=== PATIENT | female | born 1995 | race Caucasian/White ===

== ENCOUNTER → 2018-02-02 | Outpatient (CLI) | payer BC ==
[2016-06-02 19:22] VITALS: BP 114/61
--- NOTE | 2018-02-03 08:02 | CARD ---
MR#: [id number] Date of Study: 02/02/2018 Ordering Physician: KALEIGH DANIELSON, Referring Physician: KALEIGH DANIELSON, Tech: APPROVED REPORT Procedure: Implantation of a loop recorder. Indication: Near syncope, SVT, SSS, Tachybrady. Details: After appropriate informed consent, the chest was prepped and draped in usual sterile fashion. Next, 20 mL of lidocaine with epinephrine was used to and anesthetize the skin near the fourth intercostal space on the left side. Next, using a 15 blade scalpel a 0.25 inch incision was made. Subsequently, u sing a subcutaneous tunneling tool a small subcutaneous tunnel was made for the implantation of loop recorder. Subsequently, the loop recorder was injected into the subcutaneous tunnel without any probl ems. 3 stitches in an interrupted fashion were placed and the incision was covered in sterile dressin g. There were no acute complications. The patient tolerated the procedure well. <Conclusion> Successful implantation of a loop recorder for sick sinus syndrome, tachybradycardia syndrome and luke r syncope. Signed by : Kaleigh Danielson, Electronically Approved : 02/03/2018 08:02:22
== END | disposition home or self-care (01) ==
LOC: LINQ 02-01 12:59
PROVIDERS: ATTEND Internal Medicine Cardiovascular Disease
DX: I49.5 Sick sinus syndrome (principal); R55 Syncope and collapse; I47.1 Supraventricular tachycardia; I44.1 Atrioventricular block, second degree; E02 Subclinical iodine-deficiency hypothyroidism; K08.409 Partial loss of teeth, unspecified cause, unspecified class; G44.209 Tension-type headache, unspecified, not intractable; Z91.018 Allergy to other foods; Z88.8 Allergy status to other drugs, medicaments and biological substances; Z72.89 Other problems related to lifestyle; Z98.890 Other specified postprocedural states
CPT/HCPCS: 33282; C1764

== ENCOUNTER → 2018-10-22 | Outpatient (CLI) | payer BC ==
[2016-06-02 19:22] VITALS: BP 114/61
[~2018-10-22] MED LIST: DILT120T PO; HYDR-2761 PO
--- NOTE | 2018-10-22 09:17 | RAD ---
Chest, 2 views, 10/22/2018: HISTORY: Injury Comparison is made to a study from 08/05/2017. An electronic device compatible with a loop recording device is projected over the anterior aspect of the mid chest just left of midline The heart size and pulmonary vascularity are normal. No pulmonary infiltrate is seen. There is no evidence of pleural fluid or pneumothorax. IMPRESSION: No acute cardiopulmonary abnormality is detected. Electronically signed by: Johny Corbin MD (10/22/2018 9:15 AM) [facility]
== END | disposition home or self-care (01) ==
LOC: RAD 08:12
PROVIDERS: ATTEND Internal Medicine Cardiovascular Disease
DX: Z98.890 Other specified postprocedural states (principal); Z95.818 Presence of other cardiac implants and grafts
CPT/HCPCS: 71046

== ENCOUNTER 2018-11-24 08:36 | Day surgery (SDC) | payer BC ==
[~2018-11-24] VITALS: Ht 172.7 cm; Wt 114.8 kg
[~2018-11-24 08:36] MED LIST changes: +HYDROmorphone 2 MG/ML VIAL IV PRN; +IV RINGERS,LACTATED 1000ML 1,000 ML IV SCH; +MORPHINE SULFATE 2 MG/ML VIAL. IV PRN; +ONDANSETRON PF 4 MG/2 ML VIAL. IV PRN; +PROCHLORPERAZINE 10 MG/2 ML VIAL. IV PRN; +fentaNYL PF VIAL 100 MCG/2 ML VIAL IV PRN
[2018-11-24] MEDS ORDERED: PROPOFOL 20 ML IV ONE (08:45)
[2018-11-24] MEDS ORDERED: fentaNYL PF VIAL 100 MCG/2 ML VIAL ONE ×2 (08:45→12:26)
[2018-11-24] MEDS ORDERED: ROCURONIUM 50 MG/5 ML VIAL. ONE (08:45)
[2018-11-24] MEDS ORDERED: LIDOCAINE 2% PF 5 ML VIAL. ONE (08:45)
[2018-11-24] MEDS ORDERED: DEXAMETHASONE SOD PHOS 4 MG/ML VIAL ONE (08:45)
[2018-11-24] MEDS ORDERED: MIDAZOLAM HCL/PF 2 MG/2 ML VIAL. ONE (08:45)
[2018-11-24] MEDS ORDERED: ONDANSETRON PF 4 MG/2 ML VIAL. ONE (08:45)
[2018-11-24 09:01] LABS: U PREG PATIENT NEGATIVE (NEG)
[2018-11-24] MEDS ORDERED: BUPIVACAINE-EPI 0.25%-1:200000 MPF 30 ML VIAL. ONE (09:19)
[2018-11-24] MEDS ORDERED: METHYLENE BLUE 1% 10 ML VIAL. ONE (09:19)
[2018-11-24] MEDS ORDERED: ePHEDrine PF IN SALINE 50 MG/10 ML SYRINGE. IV ONE (11:02)
[2018-11-24] MEDS ORDERED: KETOROLAC 30 MG/ML INJ FOR OR. INJ ONE (11:08)
[2018-11-24] MEDS ORDERED: SEVOFLURANE 61 TO 120 MINUTES. IH ONE (11:28)
[2018-11-24] MEDS ORDERED: GLYCOPYRROLATE 1 MG/5 ML VIAL. ONE (11:33)
[2018-11-24] MEDS ORDERED: NEOSTIGMINE METHYLSULFATE 5 MG/5 ML SYRINGE. ONE (11:33)
--- NOTE | 2018-11-24 11:52 | PDOC ---
BRIEF OPERATIVE NOTE Date: Nov 24, 2018 Pre-Op Diagnosis pelvic pain, right ovarian cyst Post-Op Diagnosis same plus mild adhesive disease and endometriosis in post cul de sac Procedure Performed operative laparoscopy with vapo endometriosis, right ovarian cystectomy and lysis of adhesions Surgeon Dr. Edna Duckworth Anesthesiologist Dr. Rebollar Anesthesia Type: General Blood Loss 10cc IV Fluid see anesthesia records Urine Output straight cath prior to procedure Specimens Obtained right ovarian cyst wall Findings enlarged cystic lesion on right ovary, endo in post cul de sac and left sided colon adhesions to sidewall Complications none Operative Note [id number] EDNA DUCKWORTH MD Nov 24, 2018 11:52
[2018-11-24] MEDS ORDERED: MAG HYDROX/ALUMINUM HYD/SIMETH 30 ML ORAL.SUSP PO PRN (12:00)
[2018-11-24] MEDS ORDERED: NALOXONE 0.4 MG/ML VIAL. IV PRN (12:00)
[2018-11-24] MEDS ORDERED: HYDROcodone/APAP 5/325MG 1 TAB TABLET PO PRN (12:00)
[2018-11-24] MEDS ORDERED: SIMETHICONE 80 MG TAB.CHEW PO PRN (12:00)
[2018-11-24] MEDS ORDERED: 0.9 % SODIUM CHLORIDE 10 ML DISP.SYRIN. IV PRN (12:00)
[2018-11-24] MEDS ORDERED: diphenhydrAMINE 50 MG/ML VIAL IV PRN (12:00)
[2018-11-24] MEDS ORDERED: CALCIUM CARBONATE 500 MG TAB.CHEW PO PRN (12:00)
[2018-11-24] MEDS ORDERED: diphenhydrAMINE HCL 25 MG CAPSULE PO PRN (12:00)
--- NOTE | 2018-11-24 12:27 | OP ---
DATE OF SURGERY: 11/24/2018 PREOPERATIVE DIAGNOSES: Pelvic pain and right ovarian cyst. POSTOPERATIVE DIAGNOSES: Pelvic pain and right ovarian cyst plus mild adhesive disease and endometriosis in the posterior cul-de-sac. PROCEDURES: Operative laparoscopy, vaporization of endometriosis, right ovarian cystectomy and lysis of adhesions. SURGEON: Elisa Duckworth M.D. GASOLINE PUMP INSTALLER: OR personnel. ANESTHESIOLOGIST: Dr. Rebollar. ANESTHESIA: General. ESTIMATED BLOOD LOSS: 10 mL. URINE OUTPUT: Straight cath prior to procedure. INTRAVENOUS FLUIDS: Please see Anesthesia records. SPECIMENS: Right ovarian cyst wall. FINDINGS: An enlarged cystic lesion on the right ovary, endometriosis in the posterior cul-de-sac and left-sided colon adhesions to the sidewall. COMPLICATIONS: None. DESCRIPTION OF PROCEDURE: This patient was taken to the operating room, where general anesthesia was placed. The patient was placed in a dorsal lithotomy position in [facility]. The patient's abdomen and vagina were prepped and draped in the normal sterile fashion and straight catheterization of urine was done prior to my arrival. Upon my arrival, a timeout was performed. Once everyone agreed, a bivalve speculum was placed in the patient's vagina. A single-tooth tenaculum was used to grasp the anterior lip of the cervix. The ValtchAvidBiotics uterine manipulator was placed through the endocervical os, locked on the single tooth tenaculum and the bivalve speculum was then removed. Top gloves were discarded and changed. Attention was then turned to the abdomen, where a small infraumbilical skin incision was made with the scalpel. A curved Jeanne was used to dissect through the subcuticular layer to the fascia. The 5-mm Visiport was used to directly enter the abdominal cavity. Opening patient pressure was 6-7 mmHg. Carbon dioxide gas was used to then appropriately insufflate the abdominal cavity to maintain a pressure of 15 mmHg. The patient was placed in Trendelenburg position. A 5-mm suprapubic port was placed under direct visualization after making a small incision and placing a 5-mm trocar under direct visualization. The 4-5 mL of air was placed in the cuff here. The camera was then moved to look at the umbilical port. Once it was clear, the air was placed in the cuff on this one as well. At this point, a look around revealed the above findings. I did place a 5-mm right lower quadrant port after transilluminating the abdomen, finding an area clear of any vasculature, making a small incision and placing a 5-mm disposable atraumatic port under direct visualization and then inflating that cuff as well. First, the adhesions were done. The LigaSure was placed through the right lower quadrant port and the [place] was used to gently kind of pulled back, not even open the grasper, but just the retractor pulling back gently on the colon and scoring above on the peritoneum and then peeling the peritoneum down so it was peeled off the sidewall. Then the monopolar hook was used to make an incision in the ovarian cyst. Initially, it drained straw-colored fluid and then there was a clot, like a hemorrhagic cyst behind it and the cyst wall was peeled out and passed for permanent pathology. The monopolar hook was used to cauterize 2-3 areas of endometriosis in the posterior cul-de-sac and on the left uterosacral ligament as well. Once this was done, copious irrigation revealed hemostasis. Chelsy was placed over the ovarian cyst opening, where the cyst wall was peeled out, with excellent results. It stayed white and powdery and did not well up with any kind of blood. Once this was done, the air was taken out of all 3 trocars. The suprapubic and right lower quadrant ports were removed under direct visualization. These were hemostatic. Gas was released from the umbilical port. Once this was done, it also was removed. All three port sites were closed with 4-0 nylon at the skin and injected with 10 mL of 0.25% Marcaine with epinephrine. Once this was done, the bottom instruments were removed. The Valtchev and single tooth were removed with minimal bleeding. The patient is currently being awakened from anesthesia. ELISA DUCKWORTH MD DR: ISABELLA/ryan JOB#: [id number] / [id number]
[2018-11-24 12:53] VITALS: BP 140/77
[2018-11-24] MEDS ORDERED: HYDROcodone/APAP 5/325MG 1 TAB TABLET PO ONE (13:00)
--- NOTE | 2018-11-25 18:05 | PATHOLOGY ---
[facility] Accession Number: [id number] . 01 Material submitted: . ovary - RIGHT OVARIAN CYST WALL. Modifiers: right . 01 Clinical history: . Complex cyst right ovary . 02 Diagnosis: Segments of ovarian tissue, right ovarian cyst wall: - Hemorrhagic partially luteinized follicle cyst. LBQ/11/25/2018 . 02 Comment: There is no evidence of malignancy. (JPM/db; 11/25/2018) . 02 Electronically signed: . Lino Nixon MD, Pathologist NPI- [id number] . 01 Gross description: . The specimen is received in formalin, labeled "Farzana Bedolla, right ovarian cyst wall" and consists of multiple segments of pink-castillo to orange and hemorrhagic tissue measuring 3.4 x 3.2 x 0.5 cm in aggregate. No gross lesions are identified and the specimen is entirely submitted in A1-A2. (SDY; 11/24/2018) SYU/SYU . 02 Pathologist provided ICD-10: N83.01 . 02 CPT . 731338 Specimen Comment: A courtesy copy of this report has been sent to Specimen Comment: [phone], , . Specimen Comment: Report sent to ,DR DUNCAN / DR MAN Performed at: 01 [facility] [address], [place] [id number] MD Ned Wilkinson MD Phone: [phone] Performed at: 02 [facility] [address], [place] [id number] MD Lino Nixon MD Phone: [phone]
== END 2018-11-24 13:50 | disposition home or self-care (01) ==
LOC: SURG 08:36
PROVIDERS: ATTEND Obstetrics & Gynecology
DX: N83.01 Follicular cyst of right ovary (principal); N80.9 Endometriosis, unspecified
CPT/HCPCS: 58662; 81025; A7015; J1100; J1885; J2001; J2250; J2405; J2704; J2710; J3010; J3490; J0171; Q9968